=== PATIENT | male | born 1965 | race Caucasian/White ===

== ENCOUNTER 2024-03-09 03:43 | Emergency (ER) | payer OTHER, SELFPAY ==
[2024-03-09 03:44] VITALS: BP 119/101; PULSE 65; RESP 16; TEMP 36.5; O2SAT 100
--- NOTE | 2024-03-09 04:32 | ED_ITS ---
HPI - General Adult General Chief complaint: Urogenital-Male Stated complaint: unable to urinate Time Seen by Provider: 03/09/24 04:18 History of Present Illness HPI narrative: Patient is a 59-year-old gentleman presents emergency department with chief complaint of decreased urine output. The patient reports that he has had prostate surgery on the and reports that he noticed today that he was having some dribbling with urination and reports he has not been able to urinate since about 130 in the morning the patient reports he has pressure in the suprapubic area feels similar to whenever he has had problems urinating in the past Related Data Allergies Allergy/AdvReac Type Severity Reaction Status Date / Time meperidine [From Demerol] AdvReac Intermediate Nausea and Verified 01/05/24 08:05 Vomiting Review of Systems Review of Systems: A 10 system review of systems was completed on the patient and is negative except for what is stated in the HPI. Nursing and ancillary documentation was reviewed. [facility] Past Medical History Medical History BMI 23.0-23.9, adult COVID-19 Family History Family History Father Family history of lung cancer Tobacco abuse Mother Family history of atrial fibrillation Family history of congestive heart failure Sibling Gout Sibling No problems noted. 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 HEAD: Normocephalic, atraumatic. EYES: PERRLA and EOMI. ENT: Nares clear, no rhinorrhea or epistaxis. Mucous membranes moist. NECK: Supple. CHEST: Clear to auscultation. No respiratory distress. HEART: Regular rate and rhythm. No murmur heard. Normal peripheral pulses. ABDOMEN: Soft, suprapubic tenderness to exam, nondistended, normal active bowel sounds. EXTREMITIES: Normal range of motion. No edema. SKIN: Warm, dry, no rash. NEURO: No focal deficits. Alert and oriented x3. PSYCH: Normal mood and affect. Course Vital Signs Vital signs: Vital Signs Temperature 36.5 C 03/09/24 03:44 Pulse Rate 65 03/09/24 03:44 Respiratory Rate 16 03/09/24 03:44 Blood Pressure 119/101 H 03/09/24 03:44 Pulse Oximetry 100 03/09/24 03:44 Oxygen Delivery Room Air 03/09/24 03:44 Temperature 36.5 C 03/09/24 03:44 Pulse Rate 65 03/09/24 03:44 Respiratory Rate 18 03/09/24 04:38 Blood Pressure 119/101 H 03/09/24 03:44 Pulse Oximetry 99 03/09/24 04:38 Oxygen Delivery Room Air 03/09/24 03:44 Medical Decision Making MDM Narrative Medical decision making narrative: Differential diagnosis includes urinary obstruction, UTI, Licea catheter was placed by nursing staff UTI showed 6-10 white blood cells in the urine +1 leukocyte esterase. Patient will be started on Keflex and patient should follow-up with his urologist Vital Signs Vital Signs: Vital Signs Temperature 36.5 C 03/09/24 03:44 Pulse Rate 65 03/09/24 03:44 Respiratory Rate 16 03/09/24 03:44 Blood Pressure 119/101 H 03/09/24 03:44 Pulse Oximetry 100 03/09/24 03:44 Oxygen Delivery Room Air 03/09/24 03:44 Temperature 36.5 C 03/09/24 03:44 Pulse Rate 65 03/09/24 03:44 Respiratory Rate 18 03/09/24 04:38 Blood Pressure 119/101 H 03/09/24 03:44 Pulse Oximetry 99 03/09/24 04:38 Oxygen Delivery Room Air 03/09/24 03:44 Lab Data Labs: Lab Results 03/09/24 Range/Units 04:35 Urine Color Yellow (Yellow) Urine Appearance Clear (Clear) Urine pH 6.0 (5.0-9.0) Ur Specific [place] 1.019 (1.001-1.035) Urine Protein 1+ H (Negative) mg/dL Urine Glucose (UA) Negative (Negative) mg/dL Urine Ketones Negative (Negative) mg/dL Ur Blood (Man) 3+ H (Negative) Urine Nitrate Negative (Negative) Urine Bilirubin Negative (Negative) Urine Urobilinogen 0.2 (<2.0) mg/dL Leukocyte Esterase Rfl 1+ H (Negative) NIKHIL/UL Urine RBC >100 H (0-2) /hpf Urine WBC 6-10 H (0-3) /hpf Ur Squamous Epith Cells None seen (Few) /hpf Urine Bacteria None seen /hpf Urine Casts 0-2 Discharge Plan Discharge Clinical Impression: Acute urinary retention, Acute UTI Patient Disposition: Home, Self-Care Condition: Stable Instructions: Antibiotic Form, Urinary Retention in Men (ED), Urinary Tract Infection in Men (ED), Licea Catheter Placement and Care (ED) Prescriptions: New cephalexin 500 mg capsule 500 mg PO Q12H 7 Days Qty: 14 0RF Follow-up/Referrals: Zohaib Blood MD [Primary Care Provider] - Time of Disposition: 04:57
[2024-03-09 04:38] VITALS: RESP 18; O2SAT 99
[2024-03-09 04:49] LABS: Add Urine Microscopic? YES; Appearance Urine Clear (Clear); Bacteria Urine None Seen /hpf; Bilirubin Urine Negative (Negative); Blood Urine 3+ (Negative); Color Urine Yellow (Yellow); Glucose Urine UA Negative (Negative); Ketones Urine Negative (Negative); Leukocyte Esterase Ur 1+ LEU/UL (Negative); Nitrate Urine Negative (Negative); Non Pathogenic Casts 0-2; Protein Urine 1+ mg/dL (Negative); RBC Urine >100 /hpf (0-2); Specific Grav Ur 1.019 (1.001-1.035); Squamous Epithelial Cell Urine None Seen /hpf (Few); Urobilinogen Urine 0.2 mg/dL (<2.0)
[2024-03-09] MEDS: CEPHALEXIN 500 MG CAPSULE PO (05:46)
--- NOTE | 2024-03-09 06:00 | PC.NURSE ---
Pt states he feels better after the catheter and he is ready to leave
[2024-03-09 06:01] VITALS: BP 136/80; PULSE 82; RESP 18; O2SAT 99
== END 2024-03-09 06:02 | disposition home or self-care (01) ==
LOC: ANHED 05:02
PROVIDERS: Emergency Provider Emergency Medicine; PCP Family Medicine
DX: N39.0 Urinary tract infection, site not specified (principal); R33.9 Retention of urine, unspecified; Z98.890 Other specified postprocedural states; Z86.16 Personal history of COVID-19; Z77.22 Contact with and (suspected) exposure to environmental tobacco smoke (acute) (chronic)
CPT/HCPCS: 51702; 81001; 87086; 99283; A9270